=== PATIENT | female | born 1995 | race Two or more races ===

== ENCOUNTER 2016-09-29 23:19 | Emergency (ER) | payer MEDICAID ==
[2016-09-29 23:27] VITALS: RESP 16; TEMP 98.2; O2SAT 98
--- NOTE | 2016-09-30 00:53 | EDPHY ---
H & P Stated Complaint: neck itching, "throat tight, dry", sinus congestion, right ear pain Time Seen by Provider: 09/30/16 00:22 HPI/ROS: HPI The patient presents with rash, throat pain, right ear pain which has been present for the last 1 day. She recently took a course of Augmentin for a sinus infection and developed a rash with some sore throat swelling, she has been taking Benadryl, Pepcid, prednisone, Zyrtec for this. She is currently tapering off her prednisone. Today, she developed an itchy she rash on her shoulder and felt that her throat was swelling. She thought her tongue felt swollen. She took a tab of Benadryl. She did not have any vomiting, shortness of breath, dizziness. She did feel that her right ear was painful. She denies any new exposures. REVIEW OF SYSTEMS Constitutional: No fever, no chills. Eyes: No discharge. ENT: Positive sore throat. Cardiovascular: No chest pain, no palpitations. Respiratory: No cough, no shortness of breath. Gastrointestinal: No abdominal pain, no vomiting. Genitourinary: No hematuria. Musculoskeletal: No back pain. Skin: No rashes. Neurological: No headache. PMHx: Recent sinusitis treated with Augmentin, possibly causing allergic reaction Soc Hx: College student FHx: No family history of hereditary angioedema PHYSICAL General Appearance: Alert, no distress Eyes: Pupils equal and round no pallor or injection ENT, Mouth: Mucous membranes moist, posterior pharynx is slightly erythematous without any edema Respiratory: There are no retractions, lungs are clear to auscultation, there is no wheeze Cardiovascular: Regular rate and rhythm Gastrointestinal: Abdomen is soft and non-tender, no masses, bowel sounds normal Neurological: A&O, moves all extremities Skin: Warm and dry, no rashes Musculoskeletal: Neck is supple non tender Extremities: symmetrical, full range of motion Psychiatric: Patient is oriented X 3, there is no agitation Source: Patient Exam Limitations: No limitations - Personal History LMP (Females 10-55): 8-14 Days Ago Current Tetanus/Diphtheria Vaccine: Yes Current Tetanus Diphtheria and Acellular Pertussis (TDAP): Yes Tetanus Vaccine Date: 2014 - Medical/Surgical History Hx Asthma: No Hx Chronic Respiratory Disease: No Hx Diabetes: No Hx Cardiac Disease: No Hx Renal Disease: No Hx Cirrhosis: No Hx Alcoholism: No Hx HIV/AIDS: No Hx Splenectomy or Spleen Trauma: No Other PMH: sinusitis. no PSH - Social History Smoking Status: Never smoked Constitutional: Initial Vital Signs Temperature (C) 36.8 C 09/29/16 23:24 Heart Rate 78 09/29/16 23:24 Respiratory Rate 16 09/29/16 23:24 Blood Pressure 116/71 09/29/16 23:24 O2 Sat (%) 98 09/29/16 23:24 O2 Delivery Mode Room Air Allergies/Adverse Reactions: amoxicillin trihydrate [From Augmentin] Allergy (Verified 09/29/16 23:24) potassium clavulanate [From Augmentin] Allergy (Verified 09/29/16 23:24) Home Medications: Medication Instructions Recorded BENADRYL 09/29/16 Pepcid 09/29/16 Prednisone 09/29/16 Zyrtec 09/29/16 EPINEPHRINE [EPIPEN] 0.3 mg IM ONCE #2 syr 09/30/16 Medical Decision Making Differential Diagnosis: This is a 21-year-old female who presents with sore throat, rash, sensation that tongue is swollen for the last 1 day. She was recently diagnosed with allergic reaction after taking a course of Augmentin. She now presents with recurrence of her symptoms. On exam, she is actually quite well appearing with no urticaria, posterior pharyngeal swelling, signs of angioedema. I feel she may have an allergic reaction to something, possibly a food allergy. I will prescribe her an EpiPen in case symptoms recurrent or severe. I have instructed her to keep a food diary. I have referred her to an header up. She will be dischargedR in good condition. Departure - Departure Disposition: Home, Routine, Self-Care Clinical Impression: Allergic reaction Qualifiers: Encounter type: initial encounter Qualified Code(s): T78.40XA - Allergy, unspecified, initial encounter Condition: Good Instructions: General Allergic Reaction (ED) Additional Instructions: It is unclear exactly what is causing this allergic reaction. For this reason, I believe you should see an header up and I have referred you. Referrals: Daisy Shen MD [Medical Doctor] - As per Instructions Prescriptions: EPINEPHRINE [EPIPEN] 0.3 mg IM ONCE #2 syr
[2016-09-30 01:02] VITALS: BP 117/78; PULSE 89
== END 2016-09-30 01:08 | disposition home or self-care (01) ==
DX: T78.40XA Allergy, unspecified, initial encounter (principal)